=== PATIENT | male | born 1960 | race Caucasian/White ===

== ENCOUNTER 2016-12-06 20:33 | Emergency (ER) | payer OTHER ==
[2016-12-06 20:44] VITALS: BP 151/76; PULSE 107; RESP 16; TEMP 98.4; O2SAT 92
[2016-12-06] MEDS ORDERED: AMOXICILLIN/CLAVULANATE POT 875/125 MG TAB PO ONE (21:27)
--- NOTE | 2016-12-06 21:31 | UCPHY ---
H & P Patient Type: New Chief Complaint Nursing Narrative: R facial swelling and R facial droop x 1 week. Also c/o R teeth sensitivity Time Seen by Provider: 12/06/16 21:00 HPI/ROS: CHIEF COMPLAINT: Dental pain HISTORY OF PRESENT ILLNESS: Patient is a 56-year-old man who comes to the Urgent Care complaining of dental pain in tooth 4. For the last 5 days and now swelling in his right cheek for last 2 days. He has normal movement and sensation in his face. No stroke-like deficits in his face or arms. no fevers. No head trauma. No upper respiratory symptoms. No difficulty breathing. REVIEW OF SYSTEMS: Constitutional: denies: chills, fever, recent illness, recent injury EENTM: See HPI Respiratory: denies: cough, shortness of breath Cardiac: denies: chest pain, irregular heart rate, lightheadedness, palpitations Gastrointestinal/Abdominal: denies: abdominal pain, diarrhea, nausea, vomiting, blood streaked stools Genitourinary: denies: dysuria, frequency, hematuria, pain Musculoskeletal: denies: joint pain, muscle pain Skin: denies: lesions, rash, jaundice, bruising Neurological: denies: headache, numbness, paresthesia, tingling, dizziness, weakness Hematologic/Lymphatic: denies: blood clots, easy bleeding, easy bruising Immunologic/allergic: denies: HIV/AIDS, transplant EXAM: GENERAL: Well-appearing, well-nourished and in no acute distress. HEAD: Atraumatic, normocephalic. EYES: Pupils equal round and reactive to light, extraocular movements intact, sclera anicteric, conjunctiva are normal. ENT: See diagram, mild swelling to right anterior cheek, no palpable mass. TMs normal, nares patent, oropharynx clear without exudates. Moist mucous membranes. NECK: Normal range of motion, supple without lymphadenopathy or JVD. LUNGS: Breath sounds clear to auscultation bilaterally and equal. No wheezes rales or rhonchi. HEART: Regular rate and rhythm without murmurs, rubs or gallops. ABDOMEN: Soft, nontender, normoactive bowel sounds. No guarding, no rebound. No masses appreciated. BACK: No CVA tenderness, no spinal tenderness, step-offs or deformities EXTREMITIES: Normal range of motion, no pitting or edema. No clubbing or cyanosis. NEUROLOGICAL: Cranial nerves II through XII grossly intact. Normal speech, normal gait. 5/5 strength, normal movement in all extremities, normal sensation PSYCH: Normal mood, normal affect. SKIN: Warm, dry, normal turgor, no visible rashes or lesions. Source: Patient - Personal History Current Tetanus Diphtheria and Acellular Pertussis (TDAP): Yes Tetanus Vaccine Date: within 10 years - Medical/Surgical History Hx Asthma: No Hx Chronic Respiratory Disease: No Hx Diabetes: No Hx Cardiac Disease: No Hx Renal Disease: No Hx Cirrhosis: No Hx Alcoholism: No Hx HIV/AIDS: No Hx Splenectomy or Spleen Trauma: No Other PMH: Anxiety, depression, hyperlipidemia - Family History Significant Family History: Hypertension - Social History Smoking Status: Never smoked Alcohol Use: None Drug Use: None Constitutional: Initial Vital Signs Temperature (C) 36.9 C 12/06/16 20:40 Heart Rate 107 H 12/06/16 20:40 Respiratory Rate 16 12/06/16 20:40 Blood Pressure 151/76 H 12/06/16 20:40 O2 Sat (%) 92 12/06/16 20:40 O2 Delivery Mode Room Air Allergies/Adverse Reactions: No Known Allergies Allergy (Verified 12/06/16 20:44) Home Medications: Medication Instructions Recorded Amoxicillin/Clavulanate Pot 875 mg PO BID #14 tab 12/06/16 [Augmentin 875Mg] Crestor 12/06/16 Hydrocodone/APAP 5/325 [Snyder 1 - 2 each PO Q4 PRN #14 tab 12/06/16 5/325] VENLAFAXINE HCL 12/06/16 ED Images - Head Mouth: 1 - Dental tenderness to percussion. No visible abscess, no visible fractures a caries Medical Decision Making ED Course/Re-evaluation: clinically the patient has a dental infection and does have mild soft tissue edema surrounding. No abscess amenable to I and D, I will refer him to his dentist and treat currently with antibiotics and pain medication. The patient understands and agrees with this plan. He declines further workup or testing at this time. Differential Diagnosis: Partial list of the Differential diagnosis considered include but were not limited to; dental infection, Rojas's palsy, CVA, salivary gland stone and although unlikely based on the history and physical exam, I also considered tumor, facial abscess . I discussed these differential diagnoses and the plan with the patient as well as the usual and expected course. The patient understands that the diagnosis is provisional and that in medicine we are not always correct and that further workup is often warranted. Usual and customary warnings were given. All of the patient's questions were answered. The patient was instructed to return to the emergency department should the symptoms at all worsen or return, otherwise to followup with the physician as we discussed. - Data Points Medications Given: Discontinued Medications Amoxicillin/Clavulanate Potassium (Augmentin 875mg) 875 mg PO EDNOW ONE PRN Reason: Protocol Stop: 12/06/16 21:28 Last Admin: 12/06/16 21:41 Dose: 875 mg Departure - Departure Disposition: Home, Routine, Self-Care Clinical Impression: Dental infection Condition: Fair Instructions: Dental Abscess (ED) Referrals: [facility] 911 [Outside] - As per Instructions Jc Atkins MD [Medical Doctor] - As per Instructions Prescriptions: Amoxicillin/Clavulanate Pot [Augmentin 875Mg] 875 mg PO BID #14 tab Hydrocodone/APAP 5/325 [Snyder 5/325] 1 - 2 each PO Q4 PRN #14 tab PRN Reason: Pain, Mild - PQRS PQRS Measurement: Not applicable
== END 2016-12-06 21:42 | disposition home or self-care (01) ==
LOC: CED 20:33
DX: K04.7 Periapical abscess without sinus (principal); I10 Essential (primary) hypertension; E78.5 Hyperlipidemia, unspecified
CPT/HCPCS: G0463-PO